=== PATIENT | male | born 1985 | race Caucasian/White ===

== ENCOUNTER 2019-04-01 08:42 | Emergency (ER) | payer OTHER ==
[2019-04-01 08:57] VITALS: BP 118/65; PULSE 69; TEMP 98.1; BMI 26.6
--- NOTE | 2019-04-01 09:22 | PDOC ---
History of Present Illness - General Chief Complaint: Injury Stated Complaint: LF KNEE INJURY Time Seen by Provider: 04/01/19 08:50 History Source: Patient Exam Limitations: No Limitations Past History - Past Medical History Allergies/Adverse Reactions: Allergies Allergy/AdvReac Type Severity Reaction Status Date / Time No Known Allergies Allergy Verified 04/01/19 08:49 COPD: No - Psycho Social/Smoking Cessation Hx Smoking History: Never smoked Information on smoking cessation initiated: No Hx Alcohol Use: No Drug/Substance Use Hx: No *Physical Exam - Vital Signs Last Vital Signs Temp Pulse Resp BP Pulse Ox 98.1 F 69 18 118/65 100 04/01/19 08:47 04/01/19 08:47 04/01/19 08:47 04/01/19 08:47 04/01/19 08:47 - Physical Exam General Appearance: No: Apparent Distress Extremity: positive: Normal Inspection, Normal Range of Motion, Other (no TTP along L knee joint, no evidence of trauma). negative: Swelling, Erythema Integumentary: positive: Normal Color. negative: Swelling, Ecchymosis, Bruising Neurologic: positive: Alert, Normal Mood/Affect, Other (normal gait) Medical Decision Making - Medical Decision Making 33 y/o M with no sig pmh presents with L knee injury from last week. States a tiny nail hit his knee last week. It bled a little and then stopped. Mentions pain resolved after taking Tylenol, but last night, the pain returned. Denies fever, change in skin color Knee exam unremarkable patient reassured stable for dc 04/01/19 09:20 Discharge - Discharge Information Problems reviewed: Yes Clinical Impression/Diagnosis: Left knee injury Qualifiers: Encounter type: initial encounter Qualified Code(s): S89.92XA - Unspecified injury of left lower leg, initial encounter Condition: Stable Disposition: HOME - Admission No - Additional Discharge Information Prescription Drug Monitoring Program (I-STOP) results: I-STOP not reviewed - Follow up/Referral - Patient Discharge Instructions Patient Printed Discharge Instructions: DI for Knee Pain Additional Instructions: Thank you for choosing [facility]. It was a pleasure taking care of you. You may take Motrin 600 mg every 6 hours by mouth as needed for mild to moderate pain. Take Motrin with food. Follow-up with your doctor in 2 days Return to the Emergency Department if your symptoms worsen or persist, you have fever, redness, streaking, open wound or other concerning symptoms. - Post Discharge Activity
== END 2019-04-01 09:41 | disposition home or self-care (01) ==
LOC: JERFT 08:42
DX: S89.92XA Unspecified injury of left lower leg, initial encounter (principal); W22.8XXA Striking against or struck by other objects, initial encounter; Y93.89 Activity, other specified; Y92.89 Other specified places as the place of occurrence of the external cause
CPT/HCPCS: 99281-25

== ENCOUNTER 2022-11-21 07:27 | Emergency (ER) | payer OTHER ==
[2022-11-21 07:38] VITALS: BP 108/66; PULSE 69; RESP 16; TEMP 98.5; BMI 25.8
[2022-11-21] MEDS ORDERED: DEXAMETHASONE SOD PHOSPHATE 10 MG/1 ML VIAL IVPUSH ONE (07:59)
[2022-11-21] MEDS ORDERED: IBUPROFEN 600 MG TABLET (FP) PO ONE ×2 (08:00→08:05)
[2022-11-21] MEDS ORDERED: DEXAMETHASONE SOD PHOSPHATE 10 MG/1 ML VIAL ONE (08:05)
== END 2022-11-21 08:41 | disposition home or self-care (01) ==
LOC: JER 07:27 → JERFT 07:27
PROC: 3E033GC Introduction of Other Therapeutic Substance into Peripheral Vein, Percutaneous Approach (ICD-10-PCS; principal; 2022-11-21)
DX: R07.0 Pain in throat (principal); R68.83 Chills (without fever); M54.2 Cervicalgia; R13.10 Dysphagia, unspecified; J02.9 Acute pharyngitis, unspecified
CPT/HCPCS: 87651; 99284-25; J1100